=== PATIENT | female | born 1950 | race Caucasian/White ===

== ENCOUNTER 2016-12-13 18:02 | Emergency (ER) | payer MEDICARE, BC ==
[2016-12-13] MEDS ORDERED: diPHENhydraMINE IV* 50 MG/ML 1 ml VIAL (BENADRYL) IM ONE (18:21)
[2016-12-13 18:27] VITALS: BP 194/83
--- NOTE | 2016-12-13 18:48 | UC ---
Skin Complaint HPI - HPI Summary HPI Summary: HIVES ALL OVER X 4 HRS VERY ITCHY SKIN SINCE 3 PM TODAY AFTER HAVING ALLERGY SHOTS TODAY NO WHEEZING , NO CHEST PAIN ,NO SOB , + COUGH - History of Current Complaint Chief Complaint: UCRash Stated Complaint: REDNESS/ITCHY/FEELING FUNNY-POSS REACTION TO MED Hx Obtained From: Patient Hx Last Menstrual Period: age 45 Onset/Duration: Gradual Onset, Lasting Hours - 4, Still Present Timing: Constant Onset Severity: Moderate Current Severity: Moderate Location: Diffuse Character: Pruritus, Hives, Redness Aggravating: Nothing Alleviating: Nothing Associated Signs & Symptoms: Positive: Cough, Rash. Negative: Difficulty Breathing, Fever, Chills, Wheezing, Tenderness - Allergy/Home Medications Allergies/Adverse Reactions: Allergies Allergy/AdvReac Type Severity Reaction Status Date / Time Ciprofloxacin [From Cipro] Allergy Unknown Verified 12/13/16 18:21 Reaction Details Epinephrine AdvReac Tachycardia Verified 12/13/16 18:21 environmental Allergy Eyes Uncoded 12/13/16 18:21 Itchy/Swollen/Red/Watery Home Medications: Home Medications Loratadine [Claritin 10 MG CAP] 10 mg PO DAILY PRN 12/13/16 [History Confirmed 12/13/16] Review of Systems Constitutional: Negative Skin: Rash Eyes: Negative ENT: Negative Respiratory: Negative Cardiovascular: Negative All Other Systems Reviewed And Are Negative: Yes PMH/Surg Hx/FS Hx/Imm Hx Previously Healthy: Yes Cardiovascular History: Hypertension - Surgical History Surgical History: Yes Surgery Procedure, Year, and Place: melanoma surgeries x 2. Tonsilectomy - Family History Known Family History: Positive: Other - Melanoma - Social History Alcohol Use: Occasionally Substance Use Type: None Smoking Status (MU): Former Smoker Have You Smoked in the Last Year: No When Did the Patient Quit Smoking/Using Tobacco: 45 years ago - Immunization History Most Recent Influenza Vaccination: no Physical Exam Triage Information Reviewed: Yes Appearance: Well-Appearing, No Pain Distress, Well-Nourished Vital Signs: Initial Vital Signs Temp 98.4 F 12/13/16 18:22 Pulse 100 12/13/16 18:22 Resp 24 12/13/16 18:22 BP 194/83 12/13/16 18:22 Pulse Ox 100 12/13/16 18:22 Vital Signs Reviewed: Yes Eyes: Positive: Conjunctiva Clear ENT: Positive: Normal ENT inspection, Hearing grossly normal Dental Exam: Normal Neck: Positive: Supple Respiratory: Positive: Chest non-tender, Lungs clear, Normal breath sounds, No respiratory distress, No accessory muscle use Cardiovascular: Positive: RRR, No Murmur, Pulses Normal Abdominal Exam: Normal Abdomen Description: Positive: Nontender, No Organomegaly, Soft Bowel Sounds: Positive: Present Musculoskeletal Exam: Normal Musculoskeletal: Positive: Strength Intact Neurological: Positive: Alert Skin: Positive: rashes - HIVES Course/Dx - Diagnoses Provider Diagnoses: HIVES Discharge - Discharge Plan Condition: Stable Disposition: HOME Patient Education Materials: Urticaria (ED) Referrals: Marycarmen Rodríguez MD [Primary Care Provider] - 7 Days Additional Instructions: CONT. WITH BENADRYL 25 MG EVER 6 HRS NEEDED FOR HIVES
== END 2016-12-13 19:22 | disposition home or self-care (01) ==
LOC: UCCORT 18:02
DX: L50.9 Urticaria, unspecified (principal); I10 Essential (primary) hypertension; Z88.3 Allergy status to other anti-infective agents; Z87.891 Personal history of nicotine dependence
CPT/HCPCS: 96372; 99211; G0463; J1200